=== PATIENT | female | born 1960 ===

== ENCOUNTER 2020-08-14 13:31 | Emergency (ER) | payer SELFPAY ==
[2020-08-14 13:38] VITALS: BP 116/73
--- NOTE | 2020-08-14 14:06 | Emergency Department Report ---
Blank Doc - Documentation Documentation: Patient was called times by me and rides supervisor to be evaluated by me but patient did not answer. I did not see or examine the patient due to unable to locate the patient.
== END 2020-08-14 14:06 | disposition left against medical advice (07) ==
LOC: ED 13:31
DX: M25.549 Pain in joints of unspecified hand (principal); Z53.21 Procedure and treatment not carried out due to patient leaving prior to being seen by health care provider